=== PATIENT | female | born 1980 | race Asian ===

== ENCOUNTER 2019-06-19 01:03 | Emergency (ER) | payer OTHER ==
[2019-06-19 01:10] VITALS: BP 125/69
--- NOTE | 2019-06-19 01:10 | ED Physician Documentation ---
PD HPI FEMALE - Stated complaint Stated Complaint: FEMALE - Chief complaint Chief Complaint: Wound - History obtained from History obtained from: Patient - History of Present Illness Timing - onset: How many weeks ago (1) Timing - duration: Weeks (1) Timing - details: Gradual onset, Still present (worse the past day despite Rx meds of nystatin and triamcinolone.) Associated symptoms: Other (she was having redness with tenderness in inguinal and posterior vaginal area. Had had hemorrhoid the week prior and was using Prep H creams and pads with improvement. Then noted the rash and seen by PCP, with Rx for nystatin/triamcinolone. Not improved over past 2-3 days with that, and having significant more pain in area today.). No: Fever, Pelvic pain, Dysuria Contributing factors: Sexually active (just with ). No: Similar symptoms before: Has not had sx before Recently seen: Clinic Review of Systems Constitutional: denies: Fever, Chills Nose: denies: Rhinorrhea / runny nose, Congestion Throat: denies: Sore throat Respiratory: denies: Cough GI: denies: Nausea, Vomiting Skin: reports: Rash PD PAST MEDICAL HISTORY - Past Medical History Endocrine/Autoimmune: None - Past Surgical History Past Surgical History: No - Present Medications Home Medications: Ambulatory Orders Medication Instructions Recorded Confirmed Clotrimazole/Betamethasone Dip 15 applic TP TID #15 cream..g. 06/19/19 [Lotrisone Cream] Doxycycline Hyclate 100 mg PO BID #14 capsule 06/19/19 Fluconazole [Diflucan] 150 mg PO ONCE #2 tablet 06/19/19 Hydrocodone/Acetaminophen [Stow 1 each PO Q6H PRN #15 tablet 06/19/19 5-325 Tablet] Nystatin/Triamcin 06/19/19 [Nystatin-Triamcinolone Cream] - Allergies Allergies/Adverse Reactions: Allergies Allergy/AdvReac Type Severity Reaction Status Date / Time sulfamethoxazole Allergy Hives Verified 06/19/19 01:10 [From Bactrim] trimethoprim [From Bactrim] Allergy Hives Verified 06/19/19 01:10 - Social History Does the pt smoke?: No Smoking Status: Never smoker Does the pt drink ETOH?: No Does the pt have substance abuse?: No - Immunizations Immunizations: TDAP >10years/unknown PD ED PE NORMAL - Vitals Vital signs reviewed: Yes - General General: Alert and oriented X 3, Well developed/nourished, Other (appears uncomfortable due to inguinal/perivaginal rash. ) - Abdomen Abdomen: Soft, Non tender - Female Female : Chain Offbearer present, Other (inner labia appear normal. Did not do speculum exam. No noted vaginal discharge. The posterior fourchette area and outer labial folds with redness and tenderness. Redness has demarcated edge mostly with some small satellite red bumps around it. There area several superficial areas 2-3 mm size of ulcerations. No drainage nor induration. Looks c/w sites of secondary infection. No noted abscesses. ) - Back Back: No CVA TTP - Derm Derm: Normal color, Warm and dry Results - Vitals Vitals: Vital Signs - 24 hr 06/19/19 01:07 Temperature 36.3 C L Heart Rate 83 Respiratory 18 Rate Blood Pressure 125/69 O2 Saturation 99 Oxygen O2 Source Room air Departure - Departure Disposition: 01 Home, Self Care Clinical Impression: Tinea cruris, Bacterial infection, Perineal rash in female Condition: Stable Record reviewed to determine appropriate education?: Yes Instructions: ED Tinea Cruris General Prescriptions: Clotrimazole/Betamethasone Dip [Lotrisone Cream] 15 applic TP TID #15 cream..g. Doxycycline Hyclate 100 mg PO BID #14 capsule Fluconazole [Diflucan] 150 mg PO ONCE #2 tablet Hydrocodone/Acetaminophen [Stow 5-325 Tablet] 1 each PO Q6H PRN #15 tablet PRN Reason: Pain Comments: The main rash does look likely to be a yeast infection. We can treated with oral antifungal every 3 days for 2 more doses. Also change to clotrimazole/betamethasone cream to see if that works more effectively on the surface. It does look in places like there is a secondary bacterial infection and so add doxycycline antibiotic twice daily as well. Continue Motrin 3 times a day and you can use lidocaine gel topically for discomfort. Add Tylenol or hydrocodone as needed for pain. Recheck if not improving over the next 2 to 3 days. Discharge Date/Time: 06/19/19 02:00
[2019-06-19] MEDS ORDERED: LIDOCAINE OINTMENT 5% 35.44 GM TUBE TOP STA (01:40)
[2019-06-19] MEDS ORDERED: FLUCONAZOLE 100 MG TABLET PO STA (01:40)
[2019-06-19] MEDS ORDERED: DOXYCYCLINE 100 MG TABLET PO STA (01:40)
[2019-06-19] MEDS ORDERED: ACETAMINOPHEN 325 MG TABLET PO STA (01:40)
[2019-06-19] MEDS ORDERED: HYDROcod/ACET 5/325 Prepack 4 PO STA (01:40)
== END 2019-06-19 02:00 | disposition home or self-care (01) ==
LOC: ED 01:03
DX: B35.6 Tinea cruris (principal); A49.9 Bacterial infection, unspecified; R21 Rash and other nonspecific skin eruption
CPT/HCPCS: 99283; 99284; A9270